=== PATIENT | female | born 1960 | race Caucasian/White ===

== ENCOUNTER 2018-10-28 07:55 | Emergency (ER) | payer BC ==
[2018-10-28] MEDS ORDERED: KETOROLAC TROMETHAMINE 60 MG/2 ML SDV IM ONE (08:44)
--- NOTE | 2018-10-28 09:13 | RADIOLOGY REPORT (SQ) ---
EXAM DESCRIPTION: KNEE RIGHT 4 VIEWS COMPLETED DATE/TIME: 10/28/2018 8:47 am REASON FOR STUDY: bed 34 right knee pain/tenderness COMPARISON: None. NUMBER OF VIEWS: Four views right knee. LIMITATIONS: None. FINDINGS: Diffuse degenerative disease with osteophytes. Narrowing particularly in the lateral comp artment. Osteopenic. No fracture or worrisome bone lesion. No significant joint effusion. OTHER: No other significant finding. IMPRESSION: Osteopenia and osteoarthritis. No fracture detected. TECHNICAL DOCUMENTATION: JOB ID: [id number] Reading location - IP/workstation name: [email or web address]
--- NOTE | 2018-10-28 09:35 | ER Document Report ---
HPI - HPI Time Seen by Provider: 10/28/18 08:12 Pain Level: 3 Notes: Patient is a 58-year-old female who presents with chief complaint of right knee pain. She states that she is seen by Dr. Azevedo who is an orthopedic surgeon in [place]. She states that she is supposed to have a bilateral knee repair splint. She reports that over the last 3 days her pain has become worse. She denies any new injury. She states that she is in pain management and takes Vicodin. She declines the need for any pain medications. Patient was hoping for a steroid injection today. Patient denies any fever, redness, warmth or swelling to the knee. - CONSTITUTIONAL Constitutional: DENIES: Fever, Chills - REPRODUCTIVE Reproductive: DENIES: : Past Medical History - General Information source: Patient - Social History Smoking Status: Never Smoker Chew tobacco use (# tins/day): No Frequency of alcohol use: None Drug Abuse: None Family History: Reviewed & Not Pertinent Patient has suicidal ideation: No Patient has homicidal ideation: No - Past Medical History Cardiac Medical History: Reports: Hx Hypertension Pulmonary Medical History: Reports: Hx Asthma, Hx COPD, Hx Pneumonia - hx Neurological Medical History: Denies: Hx Seizures Renal/ Medical History: Denies: Hx Peritoneal Dialysis Musculoskeletal Medical History: Reports Hx Arthritis - Immunizations Hx Diphtheria, Pertussis, Tetanus Vaccination: No Hx Pneumococcal Vaccination: 11/13/11 Vertical Provider Document - CONSTITUTIONAL Notes: PHYSICAL EXAMINATION: GENERAL: Well-appearing, well-nourished and in no acute distress. HEAD: Atraumatic, normocephalic. EYES: Pupils equal round extraocular movements intact, conjunctiva are normal. ENT: Nares patent NECK: Normal range of motion LUNGS: No respiratory distress Musculoskeletal: Normal range of motion, tenderness to palpation to anterior and medial knee. No warmth, swelling or erythema noted. Cap refill is less than 3 seconds, normal motor and sensation distal to area of concern. NEUROLOGICAL: Normal speech, normal gait. PSYCH: Normal mood, normal affect. SKIN: Warm, Dry, normal turgor, no rashes or lesions noted. - INFECTION CONTROL TRAVEL OUTSIDE OF THE [place] IN LAST 30 DAYS: No Course - Re-evaluation Re-evalutation: 10/28/18 09:32 X-rays negative for any acute findings. Patient was given a shot of IM Toradol. Patient does not need any other pain medications as she states she already has them at home. Unfortunately we do not to do cortisone shots in the emergency department. I did speak with the patient regarding her orthopedic surgeons availability, he does have multiple offices she will call them Monday to see if she can get a sooner appointment perhaps a different location. Patient is agreeable to this plan. A knee immobilizer will be placed per patient request. Patient instructed that she can wear this if it gives her comfort and support however it is not necessary. - Vital Signs Vital signs: Temp Pulse Resp BP Pulse Ox 97.8 F 81 16 145/70 H 96 10/28/18 08:00 10/28/18 08:00 10/28/18 08:00 10/28/18 08:00 10/28/18 08:00 Procedures - Immobilization right knee Immobilizer type: Knee immobilizer Discharge - Discharge Clinical Impression: Chronic knee pain Qualifiers: Laterality: right Qualified Code(s): M25.561 - Pain in right knee Condition: Stable Disposition: HOME, SELF-CARE Additional Instructions: Your seen in the emergency department today for your right knee pain. Unfortunately we do not do corticosteroid injections in the emergency department. Your knee x-ray today did not show any acute findings such as fracture or dislocation. You were given a dose of IM Toradol in the emergency department this is a NSAID similar to ibuprofen. Please call your orthopedic surgeon's office on Monday to see if you can get an expedited appointment to see them so that they can perhaps give you the corticosteroid injection you are seeking. Return to the emergency department if you develop significant swelling , redness or heat to the area. Forms: Return to Work Referrals: DOROTHY CARTER FNP [Primary Care Provider] - Follow up as needed
[2018-10-28 10:17] VITALS: BP 140/70
== END 2018-10-28 10:00 | disposition home or self-care (01) ==
LOC: ER 07:55
DX: M25.561 Pain in right knee (principal); Z79.891 Long term (current) use of opiate analgesic; I10 Essential (primary) hypertension; J45.909 Unspecified asthma, uncomplicated
CPT/HCPCS: 99283; 96372; 73564; L1830; J1885